=== PATIENT | male | born 1995 | race Caucasian/White ===

== ENCOUNTER 2016-11-06 16:04 | Emergency (ER) | payer OTHER ==
[~2016-11-06] VITALS: Ht 185.4 cm; Wt 104.3 kg
[~2016-11-06 16:04] MED LIST: ASPIRIN325 M2 PO; ASPIRIN325 MG PO; BACTRIM DS 8001 TA1 PO; BACTRIM DS 8001 TAB PO; BACTROBAN OINT22 GM; BENADRYL25 M1 PO; CEPHALEXIN500 M1 PO; CIPRO500 MG PO; CLARITIN10 MG PO; CLINDAMYCIN HC300 MG PO; CORTISPORIN 1%7.5 M1 OP; EC NAPROSYN500 MG PO; FLEXERIL10 MG PO; FLEXERIL5 MG PO; HYDROCODONE BIT1 T11 PO; HYDROXYZINE HCL25 MG PO; IBU800 MG PO; IMODIUM A-D2 MG PO; KEFLEX500 MG PO; LOTRIMIN 1%15 GM PO; MACROBID100 M1 PO; MOTRIN CHI100 MG/51 PO; MOTRIN400 MG PO; MOTRIN600 MG PO; MOTRIN800 MG PO; MYCOLOG CREAM 115 GM T; Motrin,Rufen800 MG PO; NON; NORCO 325 MG-51 TAB PO; NORCO 5-325 TA1 EACH PO; Nizoral 2%15 GM T; PENICILLIN VK500 MG PO; PERCOCET 325 MG1 TA2 PO; PREDNICOT20 MG PO; PREDNISONE10 MG PO; PROTONIX40 MG PO; Percocet 325 MG1 TAB PO; TAMIFLU12 MG/ML PO; TORADOL10 MG PO; TYLENOL W/CODEI1 TA2 PO; TYLENOL WITH CO1 TA1 PO; ULTRAM50 MG PO; VICODIN 5/500 505 MG PO; VOLTAREN50 MG PO; ZANTAC 300300 MG PO; ZITHROMAX Z PA250 MG PO; ZITHROMAX200 MG/51 PO; ZOFRAN ODT4 MG PO; ZOFRAN ODT4 MG SL; Zofran4 MG PO
[2016-11-06 16:08] VITALS: BP 136/83
[2016-11-06 16:36] LABS: BASO % 0.1 % (0.0-1.0); HEMATOCRIT 43.8 % (42.0-52.0); HEMOGLOBIN 15.3 g/dl (14.0-18.0); LYMPH # 0.9 10*3/uL (1.3-4.4); LYMPH % 11.4 % (27.0-41.0); MEAN CELL VOLUME 77.2 fl (80.0-94.0); MEAN CORPUSCULAR HGB CONC 34.9 g/dl (33.0-37.0); MEAN PLATELET VOLUME 10.7 fl (9.6-12.3); MONO % 12.3 % (3.0-9.0); NEUT # 5.9 10*3/uL (2.3-7.9); NEUT % 75.8 % (47.0-73.0); PLATELET COUNT AUTOMATED 254 10*3/uL (130-400); RED BLOOD COUNT 5.67 10*6/uL (4.50-5.90); RED CELL DISTRI WIDTH 13.9 % (0-14.5); WHITE BLOOD COUNT 7.7 10*3/uL (4.8-10.8)
[2016-11-06 16:51] LABS: ALBUMIN 4.1 gm/dl (3.1-4.5); ALKALINE PHOSPHATASE 73 U/L (45-117); BILIRUBIN, TOTAL 1.2 mg/dl (0.2-1.0); BUN 10 mg/dl (7-24); CARBON DIOXIDE 22 mmol/L (21-32); CHLORIDE 104 mmol/L (98-107); EST GLOM FILT AFRICAN AMERICAN > 60 ml/min; GLUCOSE 102 mg/dL (65-99); POTASSIUM 3.7 mmol/L (3.5-5.1); SGOT/AST 99 IU/L (3-35); SGPT/ALT 161 U/L (12-78); SODIUM 138 mmol/L (136-145); TOTAL PROTEIN 8.4 gm/dL (6.4-8.2)
[2016-11-06] MEDS ORDERED: TAMIFLU45 MG PO (18:29)
== END 2016-11-06 18:40 | disposition home or self-care (01) ==
LOC: ED 16:04
PROVIDERS: Nurse Practitioner Family
DX: J09.X2 Influenza due to identified novel influenza A virus with other respiratory manifestations (principal); Z88.0 Allergy status to penicillin; Z88.1 Allergy status to other antibiotic agents; Z91.018 Allergy to other foods

== ENCOUNTER 2017-01-05 14:54 | Emergency (ER) | payer OTHER ==
[~2017-01-05] VITALS: Ht 185.4 cm; Wt 126.1 kg
[~2017-01-05 14:54] MED LIST changes: +TAMIFLU45 MG PO
[2017-01-05 15:39] LABS: BASO # 0.1 10*3/uL (0.0-0.1); BASO % 0.6 % (0.0-1.0); EOS # 0.3 10*3/uL (0.0-0.4); HEMATOCRIT 47.4 % (42.0-52.0); HEMOGLOBIN 16.1 g/dl (14.0-18.0); LYMPH # 2.8 10*3/uL (1.3-4.4); LYMPH % 31.3 % (27.0-41.0); MEAN CELL VOLUME 77.7 fl (80.0-94.0); MEAN CORPUSCULAR HGB 26.4 pg (27.0-31.0); MEAN PLATELET VOLUME 11.4 fl (9.6-12.3); MONO # 0.6 10*3/uL (0.1-1.0); NEUT # 5.1 10*3/uL (2.3-7.9); NEUT % 57.7 % (47.0-73.0); PLATELET COUNT AUTOMATED 292 10*3/uL (130-400); RED CELL DISTRI WIDTH 13.7 % (0-14.5); WHITE BLOOD COUNT 8.9 10*3/uL (4.8-10.8)
[2017-01-05 15:59] LABS: ALKALINE PHOSPHATASE 77 U/L (45-117); BILIRUBIN, TOTAL 0.6 mg/dl (0.2-1.0); BUN 10 mg/dl (7-24); CARBON DIOXIDE 22 mmol/L (21-32); CHLORIDE 107 mmol/L (98-107); EST GLOM FILT AFRICAN AMERICAN > 60 ml/min; GLUCOSE 92 mg/dL (65-99); POTASSIUM 4.1 mmol/L (3.5-5.1); SGOT/AST 67 IU/L (3-35); SGPT/ALT 167 U/L (12-78); SODIUM 141 mmol/L (136-145); TOTAL PROTEIN 7.6 gm/dL (6.4-8.2)
[2017-01-05 17:00] VITALS: BP 128/78
[2017-01-05] MEDS ORDERED: SUNMARK OMEPRAZ20 M1 PO (18:39)
[2017-01-05] MEDS ORDERED: CARAFATE1 G1 PO (18:39)
[2017-01-05] MEDS ORDERED: ZOFRAN4 MG PO (18:39)
== END 2017-01-05 18:55 | disposition home or self-care (01) ==
LOC: ED 14:54
PROVIDERS: Nurse Practitioner Family
DX: R10.31 Right lower quadrant pain (principal); R03.0 Elevated blood-pressure reading, without diagnosis of hypertension; R16.1 Splenomegaly, not elsewhere classified; R94.5 Abnormal results of liver function studies; Z88.0 Allergy status to penicillin; Z88.1 Allergy status to other antibiotic agents; Z91.018 Allergy to other foods

== ENCOUNTER → 2017-02-23 | Outpatient (CLI) | payer OTHER ==
[~2017-02-23] MED LIST changes: +CARAFATE1 G1 PO; +SUNMARK OMEPRAZ20 M1 PO; +ZOFRAN4 MG PO
[2017-02-23 09:57] LABS: CHOLESTEROL 180 mg/dL (<200); HDL CHOLESTEROL 42 mg/dl (40-60); LDL CHOLESTEROL 112 mg/dL (9-159); TRIGLYCERIDES 132 mg/dl (<150); VLDL CHOLESTEROL 26 mg/dL (6-40)
[2017-02-24 07:08] LABS: HEPATITIS C VIRUS ANTIBODY 0.2 s/co (0.0-0.9)
== END | disposition home or self-care (01) ==
LOC: LAB 08:49
PROVIDERS: Nurse Practitioner Family
DX: R74.8 Abnormal levels of other serum enzymes (principal); R19.7 Diarrhea, unspecified

== ENCOUNTER 2017-06-15 13:56 | Emergency (ER) | payer OTHER ==
[~2017-06-15] VITALS: Ht 182.8 cm; Wt 117.9 kg
[2017-06-15 14:21] VITALS: BP 150/80
[2017-06-15 14:42] LABS: BASO % 0.4 % (0.0-1.0); EOS # 0.1 10*3/uL (0.0-0.4); EOS % 1.3 % (1.0-4.0); HEMATOCRIT 47.8 % (42.0-52.0); HEMOGLOBIN 16.7 g/dl (14.0-18.0); LYMPH # 1.7 10*3/uL (1.3-4.4); LYMPH % 17.6 % (27.0-41.0); MEAN CELL VOLUME 76.1 fl (80.0-94.0); MEAN CORPUSCULAR HGB 26.6 pg (27.0-31.0); MEAN CORPUSCULAR HGB CONC 34.9 g/dl (33.0-37.0); MEAN PLATELET VOLUME 11.1 fl (9.6-12.3); MONO # 0.9 10*3/uL (0.1-1.0); MONO % 8.7 % (3.0-9.0); NEUT % 71.6 % (47.0-73.0); PLATELET COUNT AUTOMATED 317 10*3/uL (130-400); RED BLOOD COUNT 6.28 10*6/uL (4.50-5.90); RED CELL DISTRI WIDTH 13.4 % (0-14.5); WHITE BLOOD COUNT 9.8 10*3/uL (4.8-10.8)
[2017-06-15 15:04] LABS: ALKALINE PHOSPHATASE 86 U/L (45-117); BUN 12 mg/dl (7-24); CHLORIDE 106 mmol/L (98-107); CREATININE 0.75 mg/dL (0.70-1.30); LIPASE 95 U/L (73-393); POTASSIUM 3.7 mmol/L (3.5-5.1); SGOT/AST 89 IU/L (3-35); SGPT/ALT 152 U/L (12-78); SODIUM 136 mmol/L (136-145); TOTAL PROTEIN 8.5 gm/dL (6.4-8.2)
[2017-06-16 08:12] LABS: HEPATITIS B SURFACE AG Negative (Negative); HEPATITIS C VIRUS ANTIBODY <0.1 s/co (0.0-0.9)
== END 2017-06-15 19:08 | disposition home or self-care (01) ==
LOC: ED 13:56
PROVIDERS: Physician Assistant
DX: A08.39 Other viral enteritis (principal); K76.0 Fatty (change of) liver, not elsewhere classified; Z98.890 Other specified postprocedural states; Z88.0 Allergy status to penicillin; Z88.1 Allergy status to other antibiotic agents; Z91.018 Allergy to other foods

== ENCOUNTER 2018-01-08 10:03 | Inpatient (IN) | payer OTHER ==
[~2018-01-08] VITALS: Ht 182.9 cm; Wt 130.2 kg
--- NOTE | ~2018-01-08 | O ---
[place], [place] O[facility]ATIVE [id number] UNIT #: [id number] ROOM: 422 DOCTOR: JUAN DANIEL CHEUNG MD BIRTHDATE: [birth year] DOS: 01/09/2018 PREOPERATIVE DIAGNOSIS: Acute appendicitis. POSTOPERATIVE DIAGNOSIS: Acute appendicitis. PROCEDURE: Laparoscopic cholecystectomy. SURGEON: Juan Daniel Cheung MD [employer] FLOOR MANAGER: GERALDO. ANESTHESIA: General with endotracheal intubation. INDICATIONS: This is a 22-year-old gentleman who is here for a laparoscopic appendectomy for acute appendicitis. The procedure and its complications were explained to the patient in detail preoperatively. Complications that were discussed included but were not limited to bleeding, infection, hematoma/seroma/abscess formation, prolonged postoperative pain, damage to lying vital structures and incisional hernia formation. He agreed to proceed. DESCRIPTION OF PROCEDURE: After identifying the patient, the patient was brought to the operating suite and laid in the supine position. After induction of general anesthesia, the left upper extremity was stuck to the patient's side and a James catheter was placed into the urinary bladder. The parts were then painted and draped in the usual sterile fashion. A time-out procedure was called. An incision below the umbilicus was made. The skin and the subcutaneous tissue were incised in the line of the incision. The fascia was incised vertically and 2 stay sutures with 0 Vicryl were taken on either side. The peritoneum was opened and a 12 mm Cristy port was introduced into the peritoneal cavity. Under direct vision, left lower quadrant incision of 10 mm and suprapubic incision of 5 mm was made and appropriate size ports were introduced. The patient was placed in the Trendelenburg, right side up position. The appendix was identified to be acutely inflamed and in an post-ileal position. It was from the surrounding structures with the help of blunt dissection and freed on all sides. Thereafter, it was held up with the help of an Endo Ellenton forceps and the mesoappendix as well as the base of the appendix was stapled across with the help of an Endo-CSARLETT stapler. The appendix was then placed in an EndoCatch bag and removed from the peritoneal cavity and sent for histopathological diagnosis. Thereafter, the base of the appendix was visualized and there was no bleeding seen. Thereafter, the suprapubic and the left lower quadrant ports were removed and there was no bleeding seen. The umbilical port was also removed and the 2 stay sutures were tied together in order to close the fascia and an additional stitch was taken with 0 Vicryl in order to close the fascia superiorly. Thereafter, the skin edges were infiltrated with 1% plain lidocaine and approximated with the help of 4-0 Vicryl in a subcuticular interrupted fashion. Dressings were placed. The James catheter was removed and the patient was extubated uneventfully and brought back to the recovery room in stable fashion. There were no [place], [place] OPERATIVE NOTE NAME: SHIRA JERRY UNIT #: [id number] ROOM: [facility] DOCTOR: JUAN DANIEL CHEUNG MD BIRTHDATE: [address] Juan Daniel Cheung, the attending surgeon, was present throughout the operating case. Juan Daniel Cheung MD CM:OPRECORD:OPERATIVE NOTE [id number] JUAN DANIEL CHEUNG MD 01/09/18 1131 interface
[2018-01-08 10:10] VITALS: BP 158/106
[2018-01-08 10:29] LABS: BASO # 0.1 10*3/uL (0.0-0.1); BASO % 0.6 % (0.0-1.0); EOS # 0.2 10*3/uL (0.0-0.4); EOS % 2.5 % (1.0-4.0); HEMATOCRIT 46.5 % (42.0-52.0); HEMOGLOBIN 15.4 g/dl (14.0-18.0); LYMPH # 2.3 10*3/uL (1.3-4.4); LYMPH % 26.5 % (27.0-41.0); MEAN CELL VOLUME 77.8 fl (80.0-94.0); MEAN CORPUSCULAR HGB 25.8 pg (27.0-31.0); MEAN CORPUSCULAR HGB CONC 33.1 g/dl (33.0-37.0); MEAN PLATELET VOLUME 11.1 fl (9.6-12.3); MONO # 0.6 10*3/uL (0.1-1.0); MONO % 7.1 % (3.0-9.0); NEUT # 5.5 10*3/uL (2.3-7.9); NEUT % 62.8 % (47.0-73.0); PLATELET COUNT AUTOMATED 317 10*3/uL (130-400); RED BLOOD COUNT 5.98 10*6/uL (4.50-5.90); RED CELL DISTRI WIDTH 13.6 % (0-14.5); WHITE BLOOD COUNT 8.7 10*3/uL (4.8-10.8)
[2018-01-08 10:45] LABS: ALBUMIN 4.1 gm/dl (3.1-4.5); ALKALINE PHOSPHATASE 86 U/L (45-117); BUN 14 mg/dl (7-24); CHLORIDE 103 mmol/L (98-107); CREATININE 0.75 mg/dL (0.70-1.30); LIPASE 80 U/L (73-393); POTASSIUM 4.2 mmol/L (3.5-5.1); SGOT/AST 42 IU/L (3-35); SGPT/ALT 79 U/L (12-78); SODIUM 137 mmol/L (136-145); TOTAL PROTEIN 8.1 gm/dL (6.4-8.2)
[2018-01-08 11:23] LABS: BILIRUBIN NEGATIVE (NEGATIVE); BLOOD NEGATIVE (NEGATIVE); CLARITY CLEAR (CLEAR); COLOR YELLOW (YELLOW); GLUCOSE NEGATIVE (NEGATIVE); KETONE NEGATIVE (NEGATIVE); LEUKO ESTERASE NEGATIVE (NEGATIVE); NITRITE NEGATIVE (NEGATIVE); SPECIFIC GRAVITY 1.015 (1.005-1.030); UROBILINOGEN 0.2 E.U./dl (0.2-1.0)
[2018-01-08 11:30] VITALS: BP 128/68
[2018-01-08 11:38] LABS: RBC 0-2 rbc/hpf (0-2)
[2018-01-08 14:11] VITALS: BP 122/78
[2018-01-08 15:25] VITALS: BP 156/99
[2018-01-08 20:00] VITALS: BP 152/89
[2018-01-09] VITALS (12 sets, daily range): BP systolic 116–153; BP diastolic 61–92
[2018-01-09 06:20] LABS: BASO % 0.2 % (0.0-1.0); EOS % 0.3 % (1.0-4.0); HEMATOCRIT 43.4 % (42.0-52.0); HEMOGLOBIN 14.8 g/dl (14.0-18.0); LYMPH # 1.3 10*3/uL (1.3-4.4); LYMPH % 8.9 % (27.0-41.0); MEAN CELL VOLUME 76.7 fl (80.0-94.0); MEAN CORPUSCULAR HGB 26.1 pg (27.0-31.0); MEAN CORPUSCULAR HGB CONC 34.1 g/dl (33.0-37.0); MEAN PLATELET VOLUME 11.1 fl (9.6-12.3); MONO % 6.5 % (3.0-9.0); NEUT # 12.3 10*3/uL (2.3-7.9); NEUT % 83.7 % (47.0-73.0); PLATELET COUNT AUTOMATED 294 10*3/uL (130-400); RED BLOOD COUNT 5.66 10*6/uL (4.50-5.90); RED CELL DISTRI WIDTH 13.6 % (0-14.5); WHITE BLOOD COUNT 14.7 10*3/uL (4.8-10.8)
[2018-01-09 07:01] LABS: ALKALINE PHOSPHATASE 77 U/L (45-117); CHLORIDE 101 mmol/L (98-107); POTASSIUM 3.8 mmol/L (3.5-5.1); SODIUM 135 mmol/L (136-145); TOTAL PROTEIN 7.4 gm/dL (6.4-8.2)
[2018-01-09 07:11] LABS: ALBUMIN 3.6 gm/dl (3.1-4.5); BUN 9 mg/dl (7-24); CHOLESTEROL 162 mg/dL (<200); CREATININE 0.73 mg/dL (0.70-1.30); HDL CHOLESTEROL 39 mg/dl (40-60); LDL CHOLESTEROL 101 mg/dL (9-159); PHOSPHOROUS 2.6 mg/dL (2.5-4.9); SGOT/AST 22 IU/L (3-35); SGPT/ALT 55 U/L (12-78); THYROID STIM HORMONE (HS) 0.927 uIU/ml (0.358-4.75); TRIGLYCERIDES 111 mg/dl (<150); VLDL CHOLESTEROL 22 mg/dL (6-40)
[2018-01-09 07:38] LABS: VITAMIN D, 25-HYDROXY 19.7 ng/mL (30-100)
[2018-01-10] VITALS: BP 132/52
[2018-01-10 06:46] LABS: BASO % 0.2 % (0.0-1.0); EOS # 0.1 10*3/uL (0.0-0.4); EOS % 1.7 % (1.0-4.0); HEMATOCRIT 38.9 % (42.0-52.0); LYMPH # 1.8 10*3/uL (1.3-4.4); LYMPH % 22.2 % (27.0-41.0); MEAN CELL VOLUME 78.4 fl (80.0-94.0); MEAN CORPUSCULAR HGB 26.2 pg (27.0-31.0); MEAN CORPUSCULAR HGB CONC 33.4 g/dl (33.0-37.0); MEAN PLATELET VOLUME 10.9 fl (9.6-12.3); MONO # 0.7 10*3/uL (0.1-1.0); MONO % 8.3 % (3.0-9.0); NEUT # 5.5 10*3/uL (2.3-7.9); NEUT % 67.1 % (47.0-73.0); PLATELET COUNT AUTOMATED 214 10*3/uL (130-400); RED BLOOD COUNT 4.96 10*6/uL (4.50-5.90); RED CELL DISTRI WIDTH 13.9 % (0-14.5); WHITE BLOOD COUNT 8.2 10*3/uL (4.8-10.8)
[2018-01-10 07:00] LABS: ALKALINE PHOSPHATASE 69 U/L (45-117); BUN 10 mg/dl (7-24); CHLORIDE 104 mmol/L (98-107); CREATININE 0.73 mg/dL (0.70-1.30); POTASSIUM 3.9 mmol/L (3.5-5.1); SGOT/AST 18 IU/L (3-35); SGPT/ALT 39 U/L (12-78); SODIUM 138 mmol/L (136-145); TOTAL PROTEIN 6.5 gm/dL (6.4-8.2)
[2018-01-10 08:00] VITALS: BP 125/64
[2018-01-10] MEDS ORDERED: NORCO 5-325 TA1 EACH PO (10:34)
== END 2018-01-10 11:05 | disposition home or self-care (01) | DRG 343 ==
LOC: ED 10:03 → EDHOLD 15:00 → 4E 15:00
PROVIDERS: Emergency Medicine; Student in an Organized Health Care Education/Training Program; Surgery
PROC: 0DTJ4ZZ Resection of Appendix, Percutaneous Endoscopic Approach (ICD-10-PCS; principal; 2018-01-09)
DX: K35.80 Unspecified acute appendicitis (principal); K76.0 Fatty (change of) liver, not elsewhere classified; R16.0 Hepatomegaly, not elsewhere classified; D72.810 Lymphocytopenia; R74.0 Nonspecific elevation of levels of transaminase and lactic acid dehydrogenase [LDH]; R71.8 Other abnormality of red blood cells; E66.9 Obesity, unspecified; R79.89 Other specified abnormal findings of blood chemistry; Z88.0 Allergy status to penicillin; Z88.1 Allergy status to other antibiotic agents; Z91.02 Food additives allergy status; Z83.3 Family history of diabetes mellitus; Z79.899 Other long term (current) drug therapy; R00.0 Tachycardia, unspecified; Z68.34 Body mass index [BMI] 34.0-34.9, adult

== ENCOUNTER 2018-05-08 17:32 | Emergency (ER) | payer OTHER ==
[~2018-05-08] VITALS: Ht 185.4 cm
[2018-05-08 17:36] VITALS: BP 134/76
[2018-05-08] MEDS ORDERED: CHLORZOXAZONE500 M2 PO (17:43)
[2018-05-08] MEDS ORDERED: NAPROSYN500 MG PO (17:43)
[2018-05-08 18:48] LABS: BILIRUBIN NEGATIVE (NEGATIVE); BLOOD NEGATIVE (NEGATIVE); CLARITY CLEAR (CLEAR); COLOR YELLOW (YELLOW); GLUCOSE NEGATIVE (NEGATIVE); KETONE NEGATIVE (NEGATIVE); LEUKO ESTERASE NEGATIVE (NEGATIVE); NITRITE NEGATIVE (NEGATIVE); SPECIFIC GRAVITY >= 1.030 (1.005-1.030); UROBILINOGEN 0.2 E.U./dl (0.2-1.0)
[2018-05-08 18:59] LABS: EPITHELIAL CELLS 0-2; MUCOUS TRACE; RBC 0-2 rbc/hpf (0-2)
== END 2018-05-08 20:09 | disposition home or self-care (01) ==
LOC: ED 17:32
PROVIDERS: Nurse Practitioner Family
DX: M54.5 Low back pain (principal); R03.0 Elevated blood-pressure reading, without diagnosis of hypertension; E66.9 Obesity, unspecified; Z88.0 Allergy status to penicillin; Z88.1 Allergy status to other antibiotic agents; Z91.018 Allergy to other foods; Z68.39 Body mass index [BMI] 39.0-39.9, adult

== ENCOUNTER 2019-01-08 21:17 | Emergency (ER) | payer OTHER ==
[~2019-01-08] VITALS: Ht 185.4 cm; Wt 127.0 kg
[~2019-01-08 21:17] MED LIST changes: +CHLORZOXAZONE500 M2 PO; +NAPROSYN500 MG PO
[2019-01-08 21:20] VITALS: BP 143/76
[2019-01-08] MEDS ORDERED: MEDROL DOSEPAK4 MG PO (23:22)
[2019-01-08] MEDS ORDERED: CYCLOBENZAPRINE5 M3 PO (23:22)
[2019-01-08] MEDS ORDERED: NAPROSYN500 MG PO (23:22)
== END 2019-01-08 23:28 | disposition home or self-care (01) ==
LOC: ED 21:17
DX: M54.30 Sciatica, unspecified side (principal); E66.9 Obesity, unspecified; Z68.30 Body mass index [BMI] 30.0-30.9, adult; Z88.0 Allergy status to penicillin; Z88.1 Allergy status to other antibiotic agents; Z91.018 Allergy to other foods; Z79.899 Other long term (current) drug therapy; X50.0XXA Overexertion from strenuous movement or load, initial encounter; Y93.89 Activity, other specified; Y92.89 Other specified places as the place of occurrence of the external cause; Y99.8 Other external cause status

== ENCOUNTER → 2019-07-13 | Outpatient (CLI) | payer OTHER ==
[~2019-07-13] MED LIST changes: +CYCLOBENZAPRINE5 M3 PO; +MEDROL DOSEPAK4 MG PO; +NEURONTIN300 MG PO; +REGLAN10 M1 PO; +VALTREX1000 MG PO
== END | disposition home or self-care (01) ==
LOC: US 11:00
DX: R10.11 Right upper quadrant pain (principal); R11.2 Nausea with vomiting, unspecified

== ENCOUNTER 2019-07-19 02:19 | Emergency (ER) | payer OTHER ==
[~2019-07-19] VITALS: Wt 98.1 kg
[~2019-07-19 02:19] MED LIST changes: -NEURONTIN300 MG PO; -REGLAN10 M1 PO; -VALTREX1000 MG PO
[2019-07-19 02:24] VITALS: BP 146/90
[2019-07-19 02:46] LABS: BASO # 0.1 10*3/uL (0.0-0.1); BASO % 0.8 % (0.0-1.0); EOS # 0.3 10*3/uL (0.0-0.4); EOS % 3.1 % (1.0-4.0); HEMATOCRIT 46.3 % (42.0-52.0); HEMOGLOBIN 15.2 g/dl (14.0-18.0); LYMPH # 3.2 10*3/uL (1.3-4.4); LYMPH % 31.8 % (27.0-41.0); MEAN CELL VOLUME 80.1 fl (80.0-94.0); MEAN CORPUSCULAR HGB 26.3 pg (27.0-31.0); MEAN CORPUSCULAR HGB CONC 32.8 g/dl (33.0-37.0); MONO # 0.6 10*3/uL (0.1-1.0); MONO % 6.3 % (3.0-9.0); NEUT # 5.7 10*3/uL (2.3-7.9); NEUT % 57.6 % (47.0-73.0); PLATELET COUNT AUTOMATED 324 10*3/uL (130-400); RED BLOOD COUNT 5.78 10*6/uL (4.50-5.90); RED CELL DISTRI WIDTH 13.6 % (0-14.5)
[2019-07-19 02:59] LABS: ACT PARTIAL THROMBO TIME 28.8 SECONDS (20.0-32.1); INTERNATIONAL NORM RATIO 0.9 (2.0-3.5)
[2019-07-19 03:03] LABS: ALBUMIN 3.8 gm/dl (3.1-4.5); ALKALINE PHOSPHATASE 71 U/L (45-117); BUN 15 mg/dl (7-24); CHLORIDE 107 mmol/L (98-107); CREATININE 0.75 mg/dL (0.70-1.30); LIPASE 63 U/L (73-393); POTASSIUM 3.9 mmol/L (3.5-5.1); SGOT/AST 27 IU/L (3-35); SGPT/ALT 56 U/L (12-78); SODIUM 139 mmol/L (136-145); TOTAL PROTEIN 7.7 gm/dL (6.4-8.2)
[2019-07-19 03:04] LABS: TROPONIN I < 0.015 ng/ml (<0.045)
[2019-07-19] MEDS ORDERED: REGLAN10 M1 PO (04:07)
== END 2019-07-19 04:20 | disposition home or self-care (01) ==
LOC: ED 02:19
PROVIDERS: Emergency Medicine
DX: K82.9 Disease of gallbladder, unspecified (principal); R42 Dizziness and giddiness; R06.02 Shortness of breath; R51 Headache; E66.9 Obesity, unspecified; Z68.39 Body mass index [BMI] 39.0-39.9, adult; Z88.0 Allergy status to penicillin; Z88.1 Allergy status to other antibiotic agents; Z91.018 Allergy to other foods

== ENCOUNTER → 2019-07-25 | Outpatient (CLI) | payer OTHER ==
[~2019-07-25] MED LIST changes: +NEURONTIN300 MG PO; +REGLAN10 M1 PO; +VALTREX1000 MG PO
== END | disposition home or self-care (01) ==
LOC: NM 06:58
DX: R11.2 Nausea with vomiting, unspecified (principal); R10.11 Right upper quadrant pain

== ENCOUNTER 2019-08-15 17:07 | Emergency (ER) | payer OTHER ==
[~2019-08-15] VITALS: Ht 185.4 cm; Wt 122.0 kg
[~2019-08-15 17:07] MED LIST changes: -NEURONTIN300 MG PO; -VALTREX1000 MG PO
[2019-08-15 17:08] VITALS: BP 119/73
[2019-08-15] MEDS ORDERED: VALTREX1000 MG PO (18:26)
[2019-08-15] MEDS ORDERED: NEURONTIN300 MG PO (18:26)
== END 2019-08-15 18:30 | disposition home or self-care (01) ==
LOC: ED 17:07
DX: B02.9 Zoster without complications (principal); K21.9 Gastro-esophageal reflux disease without esophagitis; Z88.0 Allergy status to penicillin; Z88.1 Allergy status to other antibiotic agents; Z91.018 Allergy to other foods

== ENCOUNTER 2019-11-25 09:09 | Emergency (ER) | payer SELFPAY ==
[~2019-11-25] VITALS: Ht 185.4 cm; Wt 121.1 kg
[~2019-11-25 09:09] MED LIST changes: +NEURONTIN300 MG PO; +VALTREX1000 MG PO
[2019-11-25 10:46] VITALS: BP 126/77
[2019-11-25] MEDS ORDERED: ZYRTEC10 M3 PO (12:12)
[2019-11-25] MEDS ORDERED: ROBITUSSIN DM 105 ML PO (12:12)
== END 2019-11-25 12:16 | disposition home or self-care (01) ==
LOC: ED 09:09
DX: B34.9 Viral infection, unspecified (principal); K21.9 Gastro-esophageal reflux disease without esophagitis; Z88.0 Allergy status to penicillin; Z88.1 Allergy status to other antibiotic agents; Z88.8 Allergy status to other drugs, medicaments and biological substances; Z79.899 Other long term (current) drug therapy

== ENCOUNTER 2021-01-22 14:46 | Emergency (ER) | payer OTHER ==
[~2021-01-22] VITALS: Ht 185.4 cm; Wt 108.9 kg
[~2021-01-22 14:46] MED LIST changes: +ROBITUSSIN DM 105 ML PO; +ZYRTEC10 M3 PO
[2021-01-22 14:54] VITALS: BP 165/89
== END 2021-01-22 17:28 | disposition home or self-care (01) ==
LOC: ED 14:46
DX: S93.402A Sprain of unspecified ligament of left ankle, initial encounter (principal); Z88.8 Allergy status to other drugs, medicaments and biological substances; Z88.0 Allergy status to penicillin; Z91.018 Allergy to other foods; Z79.899 Other long term (current) drug therapy; X58.XXXA Exposure to other specified factors, initial encounter; Y93.89 Activity, other specified; Y92.89 Other specified places as the place of occurrence of the external cause; Y99.8 Other external cause status

== ENCOUNTER 2021-07-04 12:54 | Emergency (ER) | payer OTHER ==
[~2021-07-04] VITALS: Ht 185.4 cm; Wt 120.2 kg
[2021-07-04 13:23] VITALS: BP 126/93
[2021-07-04] MEDS ORDERED: NAPROSYN500 MG PO (16:04)
[2021-07-04] MEDS ORDERED: CYCLOBENZAPRINE10 MG PO (16:04)
== END 2021-07-04 16:19 | disposition home or self-care (01) ==
LOC: ED 12:54
DX: M54.5 Low back pain (principal); M62.830 Muscle spasm of back; Z98.890 Other specified postprocedural states; Z90.89 Acquired absence of other organs; Z79.899 Other long term (current) drug therapy; Z88.0 Allergy status to penicillin; Z88.1 Allergy status to other antibiotic agents; V49.88XA Car occupant (driver) (passenger) injured in other specified transport accidents, initial encounter; Y93.89 Activity, other specified; Y92.413 State road as the place of occurrence of the external cause; Y99.9 Unspecified external cause status

== ENCOUNTER 2022-03-21 14:02 | Emergency (ER) | payer OTHER ==
[~2022-03-21 14:02] MED LIST changes: +CYCLOBENZAPRINE10 MG PO
[2022-03-21 14:27] VITALS: BP 158/78
[2022-03-21] MEDS ORDERED: CYCLOBENZAPRINE10 MG PO (17:01)
[2022-03-21] MEDS ORDERED: TYLENOL325 M1 PO (17:01)
[2022-03-21] MEDS ORDERED: NAPROXEN250 MG PO (17:01)
== END 2022-03-21 17:10 | disposition home or self-care (01) ==
LOC: ED 14:02
DX: S13.4XXA Sprain of ligaments of cervical spine, initial encounter (principal); M54.9 Dorsalgia, unspecified; Z88.0 Allergy status to penicillin; Z88.1 Allergy status to other antibiotic agents; Z90.89 Acquired absence of other organs; Z98.890 Other specified postprocedural states; V43.62XA Car passenger injured in collision with other type car in traffic accident, initial encounter; Y93.89 Activity, other specified; Y92.89 Other specified places as the place of occurrence of the external cause; Y99.8 Other external cause status

== ENCOUNTER → 2022-04-05 | Outpatient (CLI) | payer OTHER ==
[~2022-04-05] MED LIST changes: +NAPROXEN250 MG PO; +TYLENOL325 M1 PO
== END | disposition home or self-care (01) ==
LOC: RAD 09:52
PROVIDERS: ATTEND Family Medicine
DX: M54.50 Low back pain, unspecified (principal)

== ENCOUNTER 2022-08-19 08:02 | Emergency (ER) | payer OTHER ==
[~2022-08-19] VITALS: Ht 185.4 cm; Wt 117.9 kg
[2022-08-19 08:25] VITALS: BP 163/101
[2022-08-19 09:53] LABS: BASO # 0.1 10*3/uL (0.0-0.1); BASO % 0.8 % (0.0-1.0); EOS # 0.2 10*3/uL (0.0-0.4); EOS % 1.9 % (1.0-4.0); HEMATOCRIT 50.1 % (42.0-52.0); LYMPH # 2.2 10*3/uL (1.3-4.4); LYMPH % 21.4 % (27.0-41.0); MEAN CELL VOLUME 77.3 fl (80.0-94.0); MEAN CORPUSCULAR HGB CONC 34.9 g/dl (33.0-37.0); MEAN PLATELET VOLUME 10.5 fl (9.6-12.3); MONO # 0.7 10*3/uL (0.1-1.0); MONO % 7.1 % (3.0-9.0); NEUT % 68.4 % (47.0-73.0); PLATELET COUNT AUTOMATED 353 10*3/uL (130-400); RED BLOOD COUNT 6.48 10*6/uL (4.50-5.90); RED CELL DISTRI WIDTH 13.2 % (0-14.5); WHITE BLOOD COUNT 10.3 10*3/uL (4.8-10.8)
[2022-08-19 10:11] LABS: ALKALINE PHOSPHATASE 80 U/L (45-117); BUN 13 mg/dl (7-24); CHLORIDE 106 mmol/L (98-107); CREATININE 0.85 mg/dL (0.70-1.30); LIPASE 62 U/L (73-393); POTASSIUM 3.8 mmol/L (3.5-5.1); SGOT/AST 38 IU/L (3-35); SGPT/ALT 76 U/L (12-78); SODIUM 138 mmol/L (136-145); TOTAL PROTEIN 8.5 gm/dL (6.4-8.2)
[2022-08-19] MEDS ORDERED: ONDANSETRON HYDR4 M1 PO (11:19)
== END 2022-08-19 11:30 | disposition home or self-care (01) ==
LOC: ED 08:02
PROVIDERS: Emergency Medicine
DX: B34.9 Viral infection, unspecified (principal); Z20.822 Contact with and (suspected) exposure to COVID-19; Z88.0 Allergy status to penicillin; Z88.1 Allergy status to other antibiotic agents; Z90.89 Acquired absence of other organs; Z98.890 Other specified postprocedural states

== ENCOUNTER 2025-09-04 00:27 | Emergency (ER) | payer SELFPAY ==
[~2025-09-04] VITALS: Ht 185.4 cm; Wt 120.2 kg
[~2025-09-04 00:27] MED LIST changes: +ONDANSETRON HYDR4 M1 PO
[2025-09-04 00:41] VITALS: BP 178/91
[2025-09-04] MEDS ORDERED: Ondansetron Hydrochloride 4 MG TAB SL ONE (00:45)
[2025-09-04] MEDS ORDERED: CLINDAMYCIN HCL 300 MG CAPSULE PO ONE (00:45)
[2025-09-04] MEDS ORDERED: Acetaminophen/Hydrocodone 5 MG/325 MG TABLET PO ONE (00:45)
[2025-09-04] MEDS ORDERED: CLINDAMYCIN HC300 MG PO (00:48)
== END 2025-09-04 01:06 | disposition home or self-care (01) ==
LOC: ED 00:27
DX: K02.9 Dental caries, unspecified (principal); Z88.0 Allergy status to penicillin; Z90.89 Acquired absence of other organs; Z98.890 Other specified postprocedural states